=== PATIENT | female | born 1980 | race Two or more races ===

== ENCOUNTER 2017-10-29 11:01 | Outpatient (CLI) | payer OTHER ==
[~2017-10-29 11:01] MED LIST: MOTRIN800 MG PO; SEPTRA DS TABLE1 TAB PO
== END 2017-10-29 11:14 | disposition home or self-care (01) ==
LOC: NUCLEAR 11:01
DX: M06.4 Inflammatory polyarthropathy (principal)
CPT/HCPCS: 78315; A9503

== ENCOUNTER 2023-06-16 08:00 | Inpatient (IN) | payer OTHER ==
[~2023-06-16] VITALS: Ht 152.4 cm; Wt 57.6 kg
[2023-06-16 11:08] LABS: HEMATOCRIT 31.3 % (36.0-45.00); MEAN CELL VOLUME 72.5 fL (80.00-100.00); MEAN CORPUSCULAR HGB CONC 31.8 g/dl (32.0-36.0); PLATELET COUNT 353 K/uL (150-450); RED BLOOD COUNT 4.32 M/uL (4.00-6.00); RED CELL DISTRIBUTION WIDTH 16.5 % (11.5-14.5)
[2023-06-16 11:12] LABS: PARTIAL THROMBOPLASTIN TIME 25.6 SECONDS (22.0-34.0); PROTHROMBIN TIME 10.5 SECONDS (9.0-11.5)
[2023-06-16 11:18] LABS: ALBUMIN 3.8 gm/dL (3.4-5.0); BILIRUBIN TOTAL 0.18 mg/dL (0.3-1.2); CALCIUM 9.1 mg/dL (8.5-10.1); CREATININE SERUM 0.68 mg/dL (0.55-1.02); GFR 95.35; GLOBULINA 3.6 G/DL (2.4-3.5); POTASSIUM 3.88 mEq/L (3.5-5.1); TOTAL PROTEIN 7.4 gm/dL (6.4-8.2)
[2023-06-16 12:15] LABS: PH,URINE 7.5 (5.0-8.0); URINE APPEARANCE Clear; URINE BILIRRUBIN Negative (NEGATIVE); URINE BLOOD Negative; URINE COLOR Yellow; URINE GLUCOSE Negative (NEGATIVE); URINE LEUKOCYTE Negative; URINE NITRATE Negative; URINE PROTEIN Negative (NEGATIVE); URINE UROBILINOGEN 0.2 E.U./dl
[2023-06-16 12:19] LABS: URINE BACTERIA 46.5 uL (0.0-1933); URINE EPITHELIAL CELLS 6.4 uL (0.0-38.8); URINE RBC 2.4 uL (0.0-20.8)
[2023-06-16 12:29] LABS: URINE WBC 0 uL (0.0-23.2)
[2023-06-16] MEDS ORDERED: LINZESS145 MCG PO (12:45)
[2023-06-16] MEDS ORDERED: RESTORIL30 M1 PO (12:46)
[2023-06-16] MEDS ORDERED: PRILOSEC OTC20 MG PO (12:46)
[2023-06-16] MEDS ORDERED: DICY20TA PO (12:46)
[2023-06-16] MEDS ORDERED: CLONAZEPAM2 M1 PO (12:47)
[2023-06-16] MEDS ORDERED: LAMICTAL100 MG PO (12:47)
[2023-06-16] MEDS ORDERED: ZOLOFT100 MG PO (12:47)
[2023-06-19] MEDS ORDERED: CLONAZEPAM1 MG (08:09)
[2023-06-19] MEDS ORDERED: OMEPRAZOLE20 MG (08:09)
[2023-06-19 13:46] LABS: HEMATOCRIT 26.3 % (36.0-45.00); MEAN CORPUSCULAR HEMOGLOBIN 23.6 pg (27.00-32.0); MEAN CORPUSCULAR HGB CONC 32.2 g/dl (32.0-36.0); PLATELET COUNT 273 K/uL (150-450); RED CELL DISTRIBUTION WIDTH 16.7 % (11.5-14.5)
[2023-06-19 13:47] LABS: HEMOGLOBIN 8.5 g/dL (12.0-15.00)
[2023-06-19 14:06] LABS: CALCIUM 8.3 mg/dL (8.5-10.1); CREATININE SERUM 0.63 mg/dL (0.55-1.02); GFR 104.14; POTASSIUM 4.26 mEq/L (3.5-5.1)
[2023-06-19 23:49] LABS: CALCIUM 8.2 mg/dL (8.5-10.1); CREATININE SERUM 0.65 mg/dL (0.55-1.02); GFR 100.45; POTASSIUM 3.79 mEq/L (3.5-5.1)
[2023-06-20 06:48] LABS: MEAN CELL VOLUME 72.6 fL (80.00-100.00); MEAN CORPUSCULAR HGB CONC 32.9 g/dl (32.0-36.0); PLATELET COUNT 223 K/uL (150-450); RED CELL DISTRIBUTION WIDTH 16.6 % (11.5-14.5)
[2023-06-20 06:51] LABS: HEMATOCRIT 22.5 % (36.0-45.00); MEAN CORPUSCULAR HEMOGLOBIN 23.8 pg (27.00-32.0)
[2023-06-20 06:52] LABS: HEMOGLOBIN 7.4 g/dL (12.0-15.00)
[2023-06-21 01:44] LABS: HEMATOCRIT 28.9 % (36.0-45.00); MEAN CELL VOLUME 73.8 fL (80.00-100.00); MEAN CORPUSCULAR HGB CONC 33.9 g/dl (32.0-36.0); PLATELET COUNT 223 K/uL (150-450); RED BLOOD COUNT 3.92 M/uL (4.00-6.00)
[2023-06-21 01:45] LABS: HEMOGLOBIN 9.8 g/dL (12.0-15.00)
== END 2023-06-21 13:44 | disposition home or self-care (01) | DRG 743 ==
LOC: O/R 06-19 05:55 → OB/GYN 06-19 05:55 → SURG 06-19 07:00 → OB/GYN 06-19 11:40
PROVIDERS: Obstetrics & Gynecology; ADMIT Obstetrics & Gynecology; ATTEND Obstetrics & Gynecology
PROC: 0UB90ZZ Excision of Uterus, Open Approach (ICD-10-PCS; principal; 2023-06-19 07:00)
DX: D25.2 Subserosal leiomyoma of uterus (principal); Z20.822 Contact with and (suspected) exposure to COVID-19

== ENCOUNTER 2024-06-24 08:56 | Outpatient (CLI) | payer OTHER ==
[~2024-06-24 08:56] MED LIST changes: +CLONAZEPAM1 MG; +CLONAZEPAM2 M1 PO; +DICY20TA PO; +LAMICTAL100 MG PO; +LINZESS145 MCG PO; +OMEPRAZOLE20 MG; +PRILOSEC OTC20 MG PO; +RESTORIL30 M1 PO; +ZOLOFT100 MG PO
== END 2024-06-24 08:59 | disposition home or self-care (01) ==
LOC: SONOGRAMA 08:56
PROVIDERS: ATTEND Pathology Anatomic Pathology & Clinical Pathology
DX: E04.1 Nontoxic single thyroid nodule (principal)